=== PATIENT | male | born 1975 | race American Indian/Alaskan Native ===

== ENCOUNTER 2017-04-25 20:43 | Emergency (ER) | payer OTHER ==
[2017-04-25 20:52] VITALS: BP 154/91
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
== END 2017-04-26 00:34 | disposition home or self-care (01) ==
LOC: ED 20:43
DX: M54.5 Low back pain (principal); M62.830 Muscle spasm of back; R56.9 Unspecified convulsions; F17.200 Nicotine dependence, unspecified, uncomplicated; V43.52XA Car driver injured in collision with other type car in traffic accident, initial encounter; Y93.9 Activity, unspecified; Y99.9 Unspecified external cause status; Y92.410 Unspecified street and highway as the place of occurrence of the external cause
CPT/HCPCS: 99282